=== PATIENT | female | born 1975 | race Caucasian/White ===

== ENCOUNTER 2019-08-18 16:14 | Emergency (ER) | payer SELFPAY ==
[2019-08-18] MEDS ORDERED: METOCLOPRAMIDE 10 MG/2mL INJ ONE (16:42)
[2019-08-18] MEDS ORDERED: DIPHENHYDRAMINE 50 MG/ML VIAL ONE (16:42)
[2019-08-18] MEDS ORDERED: NA CHLORIDE 0.9% 1,000 ML ONE (16:42)
[2019-08-18 17:04] LABS: Absolute Lymphocytes (CBC) 2.3 K/uL (0.7-4.9); Basophils % 0.6 % (0-1.3); Hematocrit 43.1 % (36.0-45.0); Lymphocytes % 27.3 % (15.3-44.8); MPV 8.2 fL (7.6-11.3); RBC Red Blood Cell Count 4.76 M/uL (3.86-4.86)
[2019-08-18 17:05] LABS: Protime INR 0.97
[2019-08-18 17:22] LABS: ALT/SGPT 22 U/L (12-78); AST/SGOT 14 U/L (15-37); Alkaline Phosphatase 66 U/L (45-117); BUN Blood Urea Nitrogen 11 mg/dL (7-18); Bicarbonate 22 mmol/L (21-32); Bilirubin Direct < 0.1 mg/dL (0-0.2); Bilirubin Total 0.2 mg/dL (0.2-1.0); Glucose Level 89 mg/dL (74-106); Lipase 216 U/L (73-393); Magnesium 2.2 mg/dL (1.8-2.4); NT PRO-BNP 92 pg/mL (<125); Potassium 3.9 mmol/L (3.5-5.1); Protein, Total 7.9 g/dL (6.4-8.2); Sodium Level 140 mmol/L (136-145); Troponin (Emerg Dept Use Only) < 0.02 ng/mL (0.0-0.045)
--- NOTE | 2019-08-18 18:47 | RAD REPORT ---
EXAM DESCRIPTION: CT - Chest For Pe Angio - 08/18/2019 6:09 pm CLINICAL HISTORY: Chest pain COMPARISON: None. TECHNIQUE: Dynamically enhanced axial 3 mm thick images of the chest were obtained during administra tion of <100> mL Isovue 370 IV contrast. Coronal and oblique reconstruction images were generated and reviewed. Exam utilizes a protocol for optimal evaluation of pulmonary arterial tree. Maximum intensity projections 3D imaging was utilized All CT scans are performed using dose optimization technique as appropriate and may include automated exposure control or mA/KV adjustment according to patient size. FINDINGS: A pulmonary embolus is not seen. A thoracic aortic aneurysm is not noted. A pleural effusion is not seen. A pericardial effusion is not seen. Marked bolus and paraseptal emphysema. Two right lower lobe nodules. One measures 7 millimeters the o ther 8 millimeters IMPRESSION: Negative for a pulmonary embolism. Marked COPD Two subcentimeter right lower lobe nodules. These may be inflammatory or infectious. Neoplasm is anot her consideration. Followup CT chest in 3 months recommended to assess stability
--- NOTE | 2019-08-18 18:54 | RAD REPORT ---
EXAM DESCRIPTION: CT - Abdomen Pelvis W Contrast - 08/18/2019 6:09 pm CLINICAL HISTORY: Abdominal pain COMPARISON: 2011 TECHNIQUE: Computed axial tomography of the abdomen pelvis was obtained. 100 cc Isovue-300 was admin istered intravenously. Oral contrast was not requested which limits evaluation of bowel. All CT scans are performed using dose optimization technique as appropriate and may include automated exposure control or mA/KV adjustment according to patient size. FINDINGS: The liver, spleen, pancreas, and adrenal appear unremarkable. Small renal cysts There is no evidence of diverticulitis. Moderate amount of stool within the colon Hysterectomy IMPRESSION: Moderate amount stool throughout the colon
--- NOTE | 2019-08-18 18:54 | RAD REPORT ---
EXAM DESCRIPTION: US - Abdomen Exam Limited - 08/18/2019 6:21 pm CLINICAL HISTORY: Abdominal pain. COMPARISON: None. FINDINGS: Patient was not NPO. This results in and the gallbladder being somewhat contracted. The gallbladder wall is not thickened. A gallstone is not seen. The biliary tree is normal caliber. IMPRESSION: No gross abnormality of gallbladder seen
--- NOTE | 2019-08-18 19:11 | RAD REPORT ---
EXAM DESCRIPTION: Mariela Single View08/18/2019 4:48 pm CLINICAL HISTORY: Chest pain COMPARISON: 2012 FINDINGS: An 8 millimeter nodular opacity mid to lower right lung. Small nodular opacity within the right lung base represents a nipple shadow. The left lung appears clear Marked hyperaerated lungs The heart is normal size IMPRESSION: Marked COPD 8 millimeter right lower lobe nodule. Followup CT chest in 3 months recommended to assess stability
--- NOTE | 2019-08-18 19:18 | EDPHYS ---
Physician Documentation [facility] Name: Marcie Rhodes Age: 43 yrs Sex: Female : 1975 Arrival Date: 08/18/2019 Time: 16:15 Bed 23 Private MD: ED Physician Jamal Osorio HPI: 08/18 16:27 This 43 yrs old Female presents to ER via Ambulatory with complaints of m Shortness Of Breath, Chest Pain. 16:27 The patient has shortness of breath at rest. Onset: The symptoms/episode began/occurred jmm gradually, 2 week(s) ago. Duration: The symptoms are continuous. The patient's shortness of breath is aggravated by nothing, is alleviated by nothing. Associated signs and symptoms: Pertinent positives: chest pain. This is a 43 year old female with no known chronic medical conditions that presents to the ED with complaints of epigastric pain which began after working out 2 weeks ago. Patient states having worsening pain which radiates to her chest over the past 3 days. . 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 - Social history:: Smoking status: Patient uses tobacco products, smokes one pack cigarettes per day. - Ebola Screening: : No symptoms or risks identified at this time. ROS: 16:27 Constitutional: Negative for fever, chills, and weight loss. jmm 16:27 Cardiovascular: Positive for chest pain. 16:27 Respiratory: Positive for shortness of breath. 16:27 Abdomen/GI: Positive for abdominal pain. 16:27 All other systems are negative. Exam: 16:27 Constitutional: This is a well developed, well nourished patient who is awake, alert, jmm and in no acute distress. Head/Face: atraumatic. Eyes: EOMI, no conjunctival erythema appreciated ENT: Moist Mucus Membranes Neck: Trachea midline, Supple Chest/axilla: Normal chest wall appearance and motion. Cardiovascular: Regular rate and rhythm. No edema appreciated 16:27 Cardiovascular: Rate: normal, Rhythm: regular. 16:27 Respiratory: the patient does not display signs of respiratory distress, Respirations: normal, Breath sounds: are clear throughout. 16:27 Abdomen/GI: Inspection: abdomen appears normal, Bowel sounds: normal, Palpation: soft, moderate abdominal tenderness, in the epigastric area and right upper quadrant. 16:27 Musculoskeletal/extremity: ROM: 16:27 Skin: Appearance: Color: normal in color. 16:27 Neuro: Orientation: is normal, Mentation: is normal, Memory: is normal. 16:27 Psych: Behavior/mood is pleasant, cooperative. Vital Signs: 16:21 BP 171 / 81; Pulse 106; Resp 20; Temp 97.4; Pulse Ox 100% on R/A; Weight 56.7 kg; hb Height 5 ft. 3 in. (160.02 cm); Pain 5/10; 16:56 BP 110 / 83; Pulse 91; Resp 18; Pulse Ox 98% on R/A; mg2 18:37 BP 107 / 74; Pulse 78; Resp 18; Pulse Ox 98% on R/A; mg2 16:21 Body Mass Index 22.14 (56.70 kg, 160.02 cm) hb MDM: 16:27 Patient medically screened. [facility] 19:13 Data reviewed: vital signs, nurses notes. Counseling: I had a detailed discussion with milo the patient and/or guardian regarding: the historical points, exam findings, and any diagnostic results supporting the discharge/admit diagnosis, lab results, radiology results, the need for outpatient follow up, to return to the emergency department if symptoms worsen or persist or if there are any questions or concerns that arise at home. ED course: Patient is alert and non toxic in appearance in the ED. Pain relieved in the ED. I discussed with the patient the need to follow up with GI for reevaluation. patient is otherwise advised to return to the ED if pain worsened or if she had any other concerning symptoms. Patient understood and agrees with the plan of care. . 08/18 16:34 Order name: Basic Metabolic Panel; Complete Time: 17:23 [facility] 08/18 16:34 Order name: CBC with Diff; Complete Time: 17:12 [facility] 08/18 16:34 Order name: LFT's; Complete Time: 17:23 [facility] 08/18 16:34 Order name: Magnesium; Complete Time: 17:23 [facility] 08/18 16:34 Order name: NT PRO-BNP; Complete Time: 17:23 [facility] 08/18 16:34 Order name: PT-INR; Complete Time: 17:15 [facility] 08/18 16:34 Order name: Troponin (emerg Dept Use Only); Complete Time: 17:23 [facility] 08/18 16:34 Order name: XRAY Chest (1 view); Complete Time: 19:20 [facility] 08/18 16:34 Order name: US Abdomen Limited; Complete Time: 18:57 [facility] 08/18 16:34 Order name: Lipase; Complete Time: 17:23 [facility] 08/18 17:37 Order name: CT Chest For PE Angio; Complete Time: 18:50 [facility] 08/18 17:37 Order name: CT Abd/Pelvis - IV Contrast Only; Complete Time: 18:57 [facility] 08/18 16:34 Order name: EKG; Complete Time: 16:35 [facility] 08/18 16:34 Order name: Cardiac monitoring; Complete Time: 16:43 [facility] 08/18 16:34 Order name: EKG - Nurse/Tech; Complete Time: 16:43 [facility] 08/18 16:34 Order name: IV Saline Lock; Complete Time: 16:56 [facility] 08/18 16:34 Order name: Labs collected and sent; Complete Time: 16:56 [facility] 08/18 16:34 Order name: O2 Per Protocol; Complete Time: 16:56 [facility] 08/18 16:34 Order name: O2 Sat Monitoring; Complete Time: 16:56 jmm Administered Medications: 16:55 Drug: diphenhydrAMINE 12.5 mg Route: IVP; Site: right antecubital; mg2 18:05 Follow up: Response: No adverse reaction mg2 16:56 Drug: NS 0.9% 1000 ml Route: IV; Rate: 1 bolus; Site: right antecubital; mg2 18:06 Follow up: Response: No adverse reaction; IV Status: Completed infusion; IV Intake: mg2 1000ml 16:56 Drug: Reglan 10 mg Route: IVP; Site: right antecubital; mg2 18:05 Follow up: Response: No adverse reaction mg2 Disposition: 08/18/19 19:18 Discharged to Home. Impression: Dyspnea, Epigastric pain. - Condition is Stable. - Discharge Instructions: Abdominal Pain, Adult. - Prescriptions for Bentyl 20 mg Oral Tablet - take 2 tablet by ORAL route every 6 hours As needed; 40 tablet. Pepcid 20 mg Oral Tablet - take 1 tablet by ORAL route every 12 hours for 10 days; 20 tablet. - Medication Reconciliation Form, Thank You Letter, Antibiotic Education, Prescription Opioid Use form. - Follow up: Aki Marley MD; When: 2 - 3 days; Reason: Recheck today's complaints, Continuance of care, Re-evaluation by your physician. Signatures: Dispatcher [employer] EDMS Tj Lawrence PA PA jmm Baxter, Heather, RN RN Rowdy Lawton RN RN mg2 Corrections: (The following items were deleted from the chart) 19:25 19:18 08/18/2019 19:18 Discharged to Home. Impression: Dyspnea; Epigastric pain. mg2 Condition is Stable. Forms are Medication Reconciliation Form, Thank You Letter, Antibiotic Education, Prescription Opioid Use. Follow up: Aki Marley; When: 2 - 3 days; Reason: Recheck today's complaints, Continuance of care, Re-evaluation by your physician. milo
--- NOTE | 2019-08-18 19:18 | ER ---
Nurse's Notes [facility] Name: Marcie Rhodes Age: 43 yrs Sex: Female : 1975 Arrival Date: 08/18/2019 Time: 16:15 Bed 23 Private MD: Diagnosis: Dyspnea;Epigastric pain Presentation: 08/18 16:20 Presenting complaint: Upper abdominal pressure, SOB, and chest tightness x 2 weeks, hb worse today. Transition of care: patient was not received from another setting of care. Onset of symptoms was August 18, 2019. Risk Assessment: Do you want to hurt yourself or someone else? Patient reports no desire to harm self or others. Initial Sepsis Screen: Does the patient meet any 2 criteria? No. Patient's initial sepsis screen is negative. Does the patient have a suspected source of infection? No. Patient's initial sepsis screen is negative. Care prior to arrival: None. 16:20 Method Of Arrival: Ambulatory hb 16:20 Acuity: KRISTI 3 hb Triage Assessment: 17:30 General: Appears in no apparent distress. Respiratory: the patient has mild shortness mg2 of breath. Respiratory: Reports shortness of breath. 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 - Social history:: Smoking status: Patient uses tobacco products, smokes one pack cigarettes per day. - Ebola Screening: : No symptoms or risks identified at this time. Screenin:24 Abuse screen: Denies threats or abuse. Denies injuries from another. Nutritional mg2 screening: No deficits noted. Tuberculosis screening: No symptoms or risk factors identified. Fall Risk IV access (20 points). Assessment: 17:27 General: Appears in no apparent distress. uncomfortable, Behavior is cooperative. Pain: mg2 Complains of pain in abdomen Pain does not radiate. Pain currently is 8 out of 10 on a pain scale. Quality of pain is described as aching, Pain began gradually, Is intermittent. Neuro: Level of Consciousness is awake, alert, obeys commands, Oriented to person, place, time, situation. Neuro: Cardiovascular: Capillary refill < 3 seconds Patient's skin is warm and dry. Cardiovascular: Reports chest pain, shortness of breath, Rhythm is sinus tachycardia. Respiratory: Airway is patent Respiratory effort is even, unlabored, Respiratory pattern is regular, symmetrical, Breath sounds are clear bilaterally. in mediastinum, right upper lobe, left upper lobe, right middle lobe, left lower lobe and right lower lobe. GI: Reports upper abdominal pain. : No signs and/or symptoms were reported regarding the genitourinary system. EENT: No signs and/or symptoms were reported regarding the EENT system. Derm: Skin is intact, is healthy with good turgor, Skin is pink, warm \T\ dry. normal. Musculoskeletal: Circulation, motion, and sensation intact. Capillary refill < 3 seconds. 18:30 Reassessment: Patient appears in no apparent distress at this time. Patient and/or mg2 family updated on plan of care and expected duration. Pain level reassessed. Patient is alert, oriented x 3, equal unlabored respirations, skin warm/dry/pink. 19:14 Reassessment: Patient denies pain at this time. Patient states feeling better. mg2 Vital Signs: 16:21 BP 171 / 81; Pulse 106; Resp 20; Temp 97.4; Pulse Ox 100% on R/A; Weight 56.7 kg; hb Height 5 ft. 3 in. (160.02 cm); Pain 5/10; 16:56 BP 110 / 83; Pulse 91; Resp 18; Pulse Ox 98% on R/A; mg2 18:37 BP 107 / 74; Pulse 78; Resp 18; Pulse Ox 98% on R/A; mg2 16:21 Body Mass Index 22.14 (56.70 kg, 160.02 cm) hb ED Course: 16:15 Patient arrived in ED. as 16:21 Triage completed. hb 16:21 Arm band placed on. hb 16:23 Rowdy Lawton, TYE is Primary Nurse. mg2 16:23 Tj Lawrence PA is PHCP. [facility] 16:23 Jamal Osorio MD is Attending Physician. jmm 16:47 XRAY Chest (1 view) In Process Unspecified. EDMS 16:56 No provider procedures requiring assistance completed. Inserted saline lock: 20 gauge mg2 in right antecubital area, using aseptic technique. Blood collected. 17:29 Patient has correct armband on for positive identification. Pulse ox on. NIBP on. Door mg2 closed. Warm blanket given. 18:09 CT Chest For PE Angio In Process Unspecified. EDMS 18:09 CT Abd/Pelvis - IV Contrast Only In Process Unspecified. EDMS 18:09 CT completed. Patient tolerated procedure well. Patient moved back from CT. mw3 18:19 Ultrasound completed. Patient tolerated well. 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 sg3 18:21 US Abdomen Limited In Process Unspecified. EDMS 18:38 Warm blanket given. mg2 19:17 Aki Marley MD is Referral Physician. jmm 19:25 IV discontinued, intact, bleeding controlled, No redness/swelling at site. Pressure mg2 dressing applied. Administered Medications: 16:55 Drug: diphenhydrAMINE 12.5 mg Route: IVP; Site: right antecubital; mg2 18:05 Follow up: Response: No adverse reaction mg2 16:56 Drug: NS 0.9% 1000 ml Route: IV; Rate: 1 bolus; Site: right antecubital; mg2 18:06 Follow up: Response: No adverse reaction; IV Status: Completed infusion; IV Intake: mg2 1000ml 16:56 Drug: Reglan 10 mg Route: IVP; Site: right antecubital; mg2 18:05 Follow up: Response: No adverse reaction mg2 Intake: 18:06 IV: 1000ml; Total: 1000ml. mg2 Outcome: 19:18 Discharge ordered by . [facility] 19:25 Discharged to home ambulatory, with family. mg2 19:25 Condition: stable 19:25 Discharge instructions given to patient, family, Instructed on discharge instructions, follow up and referral plans. medication usage, Demonstrated understanding of instructions, follow-up care, medications, Prescriptions given X 2. 19:25 Patient left the ED. mg2 Signatures: Dispatcher [employer] EDMS Tj Lawrence PA PA jmm Martinez, Amelia as Baxter, Heather RN TYE Jemima Monroy sg3 Rowdy Lawton RN RN [facility] [place] Shari Mcgrath mw3
[2019-08-18 19:34] VITALS: TEMP 97.4
[2019-08-18 19:35] VITALS: O2SAT 98
[2019-08-18 19:37] VITALS: BP 107/74
--- NOTE | 2019-08-19 07:52 | EKG ---
Test Date: 2019-08-18 Test Time: 16:38:03 Home Service Demonstrator: MEASUREMENT RESULTS: Intervals: Rate: 102 MT: 160 QRSD: 78 QT: 342 QTc: 445 [place]: P: 72 MT: 160 QRS: 62 T: 71 INTERPRETIVE STATEMENTS: Sinus tachycardia Otherwise normal ECG Compared to ECG 11/20/2013 12:20:47 Atrial abnormality no longer present Myocardial infarct finding no longer present Electronically Signed On 08-19-19 07:51:50 CDT by El Prasad
== END 2019-08-18 19:25 | disposition home or self-care (01) ==
LOC: ER 16:14
DX: R10.13 Epigastric pain (principal); F17.210 Nicotine dependence, cigarettes, uncomplicated
CPT/HCPCS: 36415; 71045; 71275; 74177; 76705; 80048; 80076; 83690; 83735; 83880; 84484; 85025; 85610; 93005; 96361; 96374; 96375; 99285; J1200; J2765; J7030; Q9967